=== PATIENT | female | born 1970 | race Caucasian/White ===

== ENCOUNTER 2017-01-13 | Emergency (ER) | payer BC ==
[~2017-01-13] VITALS: Ht 172.7 cm; Wt 72.6 kg
[2017-01-13] MEDS ORDERED: SERT25TA PO (00:22)
[2017-01-13] MEDS ORDERED: VERA40TA PO (00:22)
[2017-01-13] MEDS ORDERED: PERCOCET 5MG/325MG TAB PO ONE (01:00)
[2017-01-13] MEDS ORDERED: OXYCODONE/APAP 5MG/325MG(BULK) 1 TAB TAB PO ONE (02:45)
[2017-01-13] MEDS ORDERED: OXYC1TAB23 PO (02:49)
[2017-01-13 03:09] VITALS: BP 94/56
--- NOTE | 2017-01-13 08:01 | REP ---
LEFT RIB SERIES: CLINICAL: Trauma. TECHNIQUE: Frontal view of the chest with multiple views of the left hemithorax. FINDINGS: Frontal view of the chest demonstrates no obvious acute consolidation/contusion, effusion, or pneumothorax. Multiple views of the left hemithorax demonstrates no obvious acute rib fracture or trauma/injury/pathology. IMPRESSION: Normal left rib series. Signed by Willie Monroy MD 01/17/2017 10:56 A
== END 2017-01-13 03:11 | disposition home or self-care (01) ==
LOC: M ED 02:42
DX: R07.89 Other chest pain (principal); M19.90 Unspecified osteoarthritis, unspecified site; Z79.899 Other long term (current) drug therapy; Z88.5 Allergy status to narcotic agent